=== PATIENT | male | born 1970 | race Caucasian/White ===

== ENCOUNTER 2017-12-08 21:02 | Emergency (ER) | payer OTHER ==
[~2017-12-08] VITALS: Ht 182.9 cm; Wt 81.7 kg
[~2017-12-08 21:02] MED LIST: NOHOMEMEDICATIONS; VICODIN 5-5001 EACH PO
[2017-12-08] MEDS ORDERED: VYVANSE60 MG PO (21:11)
[2017-12-08 21:54] VITALS: BP 136/83
== END 2017-12-08 21:56 | disposition home or self-care (01) ==
LOC: M.ERS 21:02
DX: S61.210A Laceration without foreign body of right index finger without damage to nail, initial encounter (principal); G43.909 Migraine, unspecified, not intractable, without status migrainosus; Z88.2 Allergy status to sulfonamides; W26.0XXA Contact with knife, initial encounter; Y93.89 Activity, other specified; Y92.89 Other specified places as the place of occurrence of the external cause; Y99.8 Other external cause status